=== PATIENT | male | born 1985 | race Caucasian/White ===

== ENCOUNTER 2021-09-26 18:14 | Emergency (ER) | payer OTHER, SELFPAY ==
[2021-09-26 18:28] VITALS: BP 164/97; PULSE 86; RESP 16; TEMP 36.6; O2SAT 94; BMI 27.0
--- NOTE | 2021-09-26 18:33 | DI.RAD.S_ITS ---
PROCEDURE: XR FOREARM RT 2V INDICATIONS: fall right forearm pain TECHNIQUE: 2 views of the forearm were acquired. COMPARISON: None. FINDINGS: Bones: Possible proximal radial fracture at the neck of the radial head. Remainder of the visualized osseous structures appear intact. Soft tissues: No suspicious soft tissue calcifications or masses. Small anterior elbow joint effusion IMPRESSION: Small anterior elbow joint effusion with possible nondisplaced proximal radial fracture involving the radial neck. Dictated by: Delvis Sales M.D. on 09/26/2021 at 18:55 Approved by: Delvis Sales M.D. on 09/26/2021 at 18:56
--- NOTE | 2021-09-26 19:10 | DI.RAD.S_ITS ---
PROCEDURE: XR ELBOW RT MIN 3V INDICATIONS: fall TECHNIQUE: 3 views of the elbow were acquired. COMPARISON: None. FINDINGS: Bones: There is cortical irregularity involving the proximal radius near the radial neck. Remainder of the visualized osseous structures appear intact. No suspicious bony lesions. Soft tissues: Very small anterior elbow joint effusion. No suspicious soft tissue calcifications. IMPRESSION: Very small anterior elbow joint effusion with subtle cortical irregularity and lucency involving the proximal radius at the radial neck consistent with a fracture. Dictated by: Delvis Sales M.D. on 09/26/2021 at 19:32 Approved by: Delvis Sales M.D. on 09/26/2021 at 19:35
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
[2021-09-26] MEDS: LIDO 1%/SOD BICARB 8.4% (10ML) 10 ML SYRINGE INJ (22:32)
[2021-09-26] MEDS: HYDROCODONE/ACET 5/325 PREPACK 1 BOTTLE MISC (22:33)
[2021-09-26] MEDS: HYDROCODONE/ACET 5/325 TABLET 1 TAB PO (22:33)
[2021-09-26 22:58] VITALS: BP 163/88; PULSE 77; RESP 17; O2SAT 98
--- NOTE | 2021-09-27 00:34 | PC.NURSE ---
miles ramos per dr. calles
== END 2021-09-27 00:25 | disposition home or self-care (01) ==
PROVIDERS: Emergency Provider Emergency Medicine
DX: S52.121A Displaced fracture of head of right radius, initial encounter for closed fracture (principal); S01.81XA Laceration without foreign body of other part of head, initial encounter; W01.0XXA Fall on same level from slipping, tripping and stumbling without subsequent striking against object, initial encounter
CPT/HCPCS: 12011; 29105; 73070; 73090; 99283; 99284